=== PATIENT | female | born 1995 | race Caucasian/White ===

== ENCOUNTER 2019-01-17 20:51 | Emergency (ER) | payer MEDICAID ==
--- NOTE | 2019-01-17 21:51 | EDM.PDOC ---
ED HPI GENERAL MEDICAL PROBLEM - General Chief Complaint: Respiratory Problem Stated Complaint: COUGH WHICH MAKES HER VOMIT UNABLE TO KEEP FOOD DO Time Seen by Provider: 01/17/19 21:04 Source of Information: Reports: Patient History Limitations: Reports: No Limitations - History of Present Illness INITIAL COMMENTS - FREE TEXT/NARRATIVE: 23-year-old female presents for evaluation of cough and cold symptoms. She reports that her symptoms started 4 days ago with a stuffy nose. She states she now has a runny nose. 2 days ago she developed a cough. She is reporting that she has a light yellow productive sputum. She is also complaining of throat pain and right ear pain. She denies any fevers, chills or nausea. She states she has been experiencing posttussive emesis. States she's tried multiple over- the-counter medications including DayQuil and NyQuil. She is also taken some of her mother's Tessalon Perles which did not help. Reports her brothers are ill as well but she does not know with what. Throat Pain Score (Numeric/FACES): 5 Right Ear Pain Score (Numeric/FACES): 4 - Related Data Allergies Allergy/AdvReac Type Severity Reaction Status Date / Time amoxicillin [From Augmentin] Allergy Hives Verified 01/17/19 21:03 clavulanic acid Allergy Hives Verified 01/17/19 21:03 [From Augmentin] clindamycin Allergy Hives Verified 01/17/19 21:03 Home Meds: Home Meds Dextromethorphan/guaiFENesin [Robitussin DM] 10 ml PO Q4HR PRN #240 ml 01/17/19 [Rx] Past Medical History - Past Surgical History HEENT Surgical History: Reports: Adenoidectomy, Tonsillectomy Social & Family History - Tobacco Use Smoking Status *Q: Current Every Day Smoker Years of Tobacco use: 7 Packs/Tins Daily: 0.5 - Caffeine Use Caffeine Use: Reports: Coffee, Soda - Recreational Drug Use Recreational Drug Use: No ED ROS GENERAL - Review of Systems Review Of Systems: See Below Constitutional: Denies: Fever, Chills HEENT: Reports: Ear Pain (right), Throat Pain Respiratory: Reports: Cough, Sputum GI/Abdominal: Reports: Vomiting (post tussive). Denies: Nausea ED EXAM, GENERAL - Physical Exam Exam: See Below Exam Limited By: No Limitations General Appearance: Alert, WD/WN, No Apparent Distress Eye Exam: Bilateral Eye: Normal Inspection Ears: Normal External Exam, Normal Canal, Hearing Grossly Normal, Normal TMs Nose: Normal Inspection Throat/Mouth: Normal Inspection, Normal Lips, Normal Oropharynx, Normal Voice, No Airway Compromise, Other (tonsils are absent) Neck: Normal Inspection. No: Lymphadenopathy (L), Lymphadenopathy (R) Respiratory/Chest: No Respiratory Distress, Lungs Clear, Normal Breath Sounds Cardiovascular: Normal Peripheral Pulses, Regular Rate, Rhythm, No Murmur Neurological: Alert, Oriented, Normal Cognition Psychiatric: Normal Affect, Normal Mood Skin Exam: Warm, Dry, Normal Color Course - Vital Signs Last Recorded V/S: Last Vital Signs Temp 96.9 F 01/17/19 21:06 Pulse 68 01/17/19 21:06 Resp 20 01/17/19 21:06 BP 112/91 H 01/17/19 21:06 Pulse Ox 98 01/17/19 21:06 - Orders/Labs/Meds Orders: Active Orders 24 hr Category Date Time Status Chest 2V [CR] Stat Exams 01/17/19 21:22 Ordered - Radiology Interpretation Free Text/Narrative:: Two-view chest x-ray shows no acute intrathoracic process. - Re-Assessments/Exams Free Text/Narrative Re-Assessment/Exam: 01/17/19 21:45 Reviewed x-ray results the patient. Will discharge home. Viral upper respiratory infection. Recommendations given. Discharge instructions as documented. Departure - Departure Time of Disposition: 21:46 Disposition: Home, Self-Care 01 Condition: Good Clinical Impression: Viral upper respiratory infection - Discharge Information *PRESCRIPTION DRUG MONITORING PROGRAM REVIEWED*: Yes *COPY OF PRESCRIPTION DRUG MONITORING REPORT IN PATIENT [place]: No Prescriptions: Dextromethorphan/guaiFENesin [Robitussin DM] 10 ml PO Q4HR PRN #240 ml PRN Reason: Cough Instructions: Upper Respiratory Infection, Adult, [id number] Forms: ED Department Discharge Additional Instructions: Rest. Expect the cold to last 1-2 weeks. Post viral coughs can last several weeks longer. Drink plenty of fluids. Take the cough syrup 10mls PO every 4 hours prn cough. May try an OTC antihistamine such as Claritin or Allergy to help dry up secretions. Follow-up with PCP as needed. Please return to the ER should your symptoms change or worsen. - My Orders Last 24 Hours: My Active Orders 01/17/19 21:22 Chest 2V [CR] Stat - Assessment/Plan Last 24 Hours: My Active Orders 01/17/19 21:22 Chest 2V [CR] Stat
--- NOTE | 2019-01-20 10:17 | CR ---
Chest: Two views of the chest were obtained. Comparison: No prior chest x-ray. Heart size and mediastinum are normal. Lungs are clear. Bony structures are unremarkable. Pressure: 1. Nothing acute is appreciated on two-view chest x-ray. Diagnostic code #1
== END 2019-01-17 22:00 | disposition home or self-care (01) ==
LOC: JD.ED 20:51
DX: J06.9 Acute upper respiratory infection, unspecified (principal); F17.210 Nicotine dependence, cigarettes, uncomplicated; Z98.890 Other specified postprocedural states; Z88.1 Allergy status to other antibiotic agents
CPT/HCPCS: 71046; 71046-26; 99283

== ENCOUNTER 2019-06-01 21:03 | Emergency (ER) | payer MEDICAID ==
[2019-06-01] MEDS ORDERED: Ondansetron 4 MG Tab.DIS PO ONE (21:42)
--- NOTE | 2019-06-01 22:07 | EDM.PDOC ---
ED HPI GENERAL MEDICAL PROBLEM - General Chief Complaint: Gastrointestinal Problem Stated Complaint: VOMITING Time Seen by Provider: 06/01/19 21:42 Source of Information: Reports: Patient, RN Notes Reviewed History Limitations: Reports: No Limitations - History of Present Illness INITIAL COMMENTS - FREE TEXT/NARRATIVE: Patient is a 23-year-old female who presents to the ED for evaluation of vomiting. Patient states that she had 4 teeth pulled on Sunday, as these were rotten, and since then she's had a sore throat, cough, runny nose and sinus congestion since then. There is oral surgery was done with an oral surgeon at [facility], patient states that she had IV sedation and was not intubated for this procedure. The patient did have 2 teeth pulled on the upper right and left jaw and 2 teeth pulled on the right lower jaw. The patient states that she has had 4 episodes of vomiting today, she states anytime she tries to eat, about one hour later she vomits everything back up. She denies any fevers or chills. She states that she is getting adequate pain control from the hydrocodone, but states she is running low. Oral/Mouth Pain Score (Numeric/FACES): 5 - Related Data Allergies Allergy/AdvReac Type Severity Reaction Status Date / Time clavulanic acid Allergy Hives Verified 03/02/19 09:34 [From Augmentin] clindamycin Allergy Hives Verified 01/17/19 21:03 vancomycin Allergy Itching Verified 06/01/19 21:35 Home Meds: Home Meds . [No Known Home Meds] 06/01/19 [History] Past Medical History - Past Health History Medical/Surgical History: Denies Medical/Surgical History - Past Surgical History HEENT Surgical History: Reports: Adenoidectomy, Oral Surgery, Tonsillectomy Social & Family History - Family History Family Medical History: Noncontributory - Tobacco Use Smoking Status *Q: Never Smoker - Caffeine Use Caffeine Use: Reports: Coffee, Soda - Recreational Drug Use Recreational Drug Use: No ED ROS GENERAL - Review of Systems Review Of Systems: See Below Constitutional: Denies: Fever, Chills HEENT: Reports: No Symptoms Respiratory: Reports: No Symptoms Cardiovascular: Reports: No Symptoms Endocrine: Reports: No Symptoms GI/Abdominal: Reports: Nausea, Vomiting. Denies: Abdominal Pain : Reports: No Symptoms Musculoskeletal: Reports: No Symptoms Skin: Reports: No Symptoms Neurological: Reports: No Symptoms Psychiatric: Reports: No Symptoms Hematologic/Lymphatic: Reports: No Symptoms Immunologic: Reports: No Symptoms ED EXAM, GI/ABD - Physical Exam Exam: See Below Exam Limited By: No Limitations General Appearance: Alert, WD/WN, No Apparent Distress Eyes: Bilateral: Normal Appearance, EOMI Nose: Normal Inspection Throat/Mouth: Normal Inspection, Normal Lips, Other (dentition in poor repair. 4 sites of dental extraction, no obvious swelling or redness noted.) Head: Atraumatic, Normocephalic Neck: Normal Inspection, Supple, Non-Tender, Full Range of Motion Respiratory/Chest: No Respiratory Distress, Lungs Clear, Normal Breath Sounds, No Accessory Muscle Use, Chest Non-Tender Cardiovascular: Normal Peripheral Pulses, Regular Rate, Rhythm, No Murmur GI/Abdominal Exam: Normal Bowel Sounds, Soft, Non-Tender, No Distention, No Mass Extremities: Normal Inspection, Normal Capillary Refill Neurological: Alert, Oriented, Normal Cognition, No Motor/Sensory Deficits Psychiatric: Normal Affect, Normal Mood Skin Exam: Warm, Dry, Intact, Normal Color, No Rash Course - Vital Signs Last Recorded V/S: Last Vital Signs Temp 98.6 F 06/01/19 21:31 Pulse 67 06/01/19 21:31 Resp 18 06/01/19 21:31 BP 123/83 06/01/19 21:31 Pulse Ox 99 06/01/19 21:31 - Orders/Labs/Meds Orders: Active Orders 24 hr Category Date Time Status Communication Order [RC] ASDIRECTED Care 06/01/19 22:30 Ordered Meds: Medications Discontinued Medications Generic Name Dose Route Start Last Admin Trade Name Fareed PRN Reason Stop Dose Admin Ceftriaxone Sodium 1 gm 06/01/19 22:39 Rocephin IM 06/01/19 22:40 ONETIME ONE Ketorolac Tromethamine 60 mg 06/01/19 22:31 06/01/19 22:42 Toradol IM 06/01/19 22:32 60 mg ONETIME ONE Administration Lidocaine HCl 2 ml 06/01/19 22:40 Xylocaine-Mpf 1% INJECT 06/01/19 22:41 ONETIME ONE Ondansetron HCl 4 mg 06/01/19 21:42 06/01/19 21:52 Zofran Odt PO 06/01/19 21:43 4 mg ONETIME ONE Administration - Re-Assessments/Exams Free Text/Narrative Re-Assessment/Exam: 06/01/19 22:22 Patient presents to the ED for the evaluation of vomiting 4 today. Did order 4 mg ODT Zofran for initial management, will have her drink some fluids and eating crackers to see if these stay down. At this point in time she does not appear to have any sort of acute infective process, she could have a viral cold superimposed on everything, and she states she has been having an increased cough, and mildly sore throat with sinus congestion. I will have her follow up with her dental surgeon tomorrow regarding her concerning symptoms. 06/01/19 22:40 I did re-assess the patient and she was worried about the possibility of a bacterial infection d/t the recent dental work. I did order 1 gm Rocephin IM to be given with lidocaine, and will provide the patient with some cough medicine, as she states that this is what makes her nauseous, is the coughing. Departure - Departure Time of Disposition: 22:43 Disposition: Home, Self-Care 01 Condition: Fair Clinical Impression: Sore throat, Cough, Pain, dental Nausea and vomiting Qualifiers: Vomiting type: unspecified Vomiting Intractability: non-intractable Qualified Code(s): R11.2 - Nausea with vomiting, unspecified - Discharge Information *PRESCRIPTION DRUG MONITORING PROGRAM REVIEWED*: No *COPY OF PRESCRIPTION DRUG MONITORING REPORT IN PATIENT [place]: No Instructions: Cough, Adult, [id number], Nausea and Vomiting, Adult, Easy-to- Read, Sore Throat, [id number] Referrals: PCP,None [Primary Care Provider] - Forms: ED Department Discharge Additional Instructions: You were evaluated in the ED today for your cough, sore throat, and nausea and vomiting. You were given a one-time dose of Rocephin in the ED, this was given by injection, for recent dental work. You were given a prescription for some cough medicine, he'll need to obtain this out of the [employer] machine in the ER lobby, please take as directed. Recommend that you follow up with your dental surgeon tomorrow for possible follow-up appointment. Please return to the ED if your symptoms should change or worsen. - My Orders Last 24 Hours: My Active Orders 06/01/19 22:30 Communication Order [RC] ASDIRECTED - Assessment/Plan Last 24 Hours: My Active Orders 06/01/19 22:30 Communication Order [RC] ASDIRECTED
[2019-06-01] MEDS ORDERED: Ketorolac 60 MG/2 ML SDV IM ONE (22:31)
[2019-06-01] MEDS ORDERED: cefTRIAXone 1 GM Vial IM ONE (22:39)
[2019-06-01] MEDS ORDERED: Lidocaine 1% PF 2 ML SDV INJECT ONE (22:40)
== END 2019-06-01 23:15 | disposition home or self-care (01) ==
LOC: JD.ED 21:03
DX: R11.2 Nausea with vomiting, unspecified (principal); J02.9 Acute pharyngitis, unspecified; R05 Cough; K08.89 Other specified disorders of teeth and supporting structures; Z88.1 Allergy status to other antibiotic agents
CPT/HCPCS: 96372; 96374; 99283; A9270; J0696; J1885; J2001

== ENCOUNTER 2019-10-08 11:47 | Emergency (ER) | payer MEDICAID ==
--- NOTE | 2019-10-08 13:34 | EDM.PDOC ---
ED HPI GENERAL MEDICAL PROBLEM - General Chief Complaint: Respiratory Problem Stated Complaint: RUNNY NOSE/COUGHING Time Seen by Provider: 10/08/19 12:05 Source of Information: Reports: Patient History Limitations: Reports: No Limitations - History of Present Illness INITIAL COMMENTS - FREE TEXT/NARRATIVE: Patient is a 24-year-old female who presents with complaints of runny nose, congestion, and cough for the last day. She denies any fevers, chills, shortness of breath. States that her cough is nonproductive. Patient did not have an influenza vaccination this year. Her son is ill with similar symptoms. - Related Data Allergies Allergy/AdvReac Type Severity Reaction Status Date / Time amoxicillin Allergy Hives Verified 10/08/19 12:09 clavulanic acid Allergy Hives Verified 10/08/19 12:09 [From Augmentin] clindamycin Allergy Hives Verified 10/08/19 12:09 vancomycin Allergy Itching Verified 10/08/19 12:09 Home Meds: Home Meds . [No Known Home Meds] 10/08/19 [History] Past Medical History - Past Health History Medical/Surgical History: Denies Medical/Surgical History Cardiovascular History: Reports: None Respiratory History: Reports: None Gastrointestinal History: Reports: None Genitourinary History: Reports: None [employer]ER History: Reports: None Musculoskeletal History: Reports: None Neurological History: Reports: None Psychiatric History: Reports: None Endocrine/Metabolic History: Reports: None Hematologic History: Reports: None Immunologic History: Reports: None Oncologic (Cancer) History: Reports: None Dermatologic History: Reports: None - Infectious Disease History Infectious Disease History: Reports: None - Past Surgical History HEENT Surgical History: Reports: Adenoidectomy, Oral Surgery, Tonsillectomy Social & Family History - Family History Family Medical History: Noncontributory - Tobacco Use Smoking Status *Q: Current Every Day Smoker Years of Tobacco use: 7 Packs/Tins Daily: 0.5 - Caffeine Use Caffeine Use: Reports: Coffee, Soda - Recreational Drug Use Recreational Drug Use: No ED ROS GENERAL - Review of Systems Review Of Systems: Comprehensive ROS is negative, except as noted in HPI. ED EXAM, GENERAL - Physical Exam Exam: See Below Exam Limited By: No Limitations General Appearance: Alert, WD/WN, No Apparent Distress Ears: Normal External Exam, Normal Canal, Hearing Grossly Normal, Normal TMs Throat/Mouth: Normal Inspection, Normal Lips, Normal Teeth, Normal Gums, Normal Oropharynx, Normal Voice, No Airway Compromise Respiratory/Chest: No Respiratory Distress, Lungs Clear, Normal Breath Sounds, No Accessory Muscle Use, Chest Non-Tender Cardiovascular: Normal Peripheral Pulses, Regular Rate, Rhythm, No Edema, No Gallop, No JVD, No Murmur, No Rub GI/Abdominal: Normal Bowel Sounds, Soft, Non-Tender, No Organomegaly, No Distention, No Abnormal Bruit, No Mass Neurological: Alert, Oriented, CN II-XII Intact, Normal Cognition, Normal Gait, Normal Reflexes, No Motor/Sensory Deficits Psychiatric: Normal Affect, Normal Mood Skin Exam: Warm, Dry, Intact, Normal Color, No Rash Course - Vital Signs Last Recorded V/S: Last Vital Signs Temp 96.9 F 10/08/19 12:07 Pulse 93 10/08/19 12:07 Resp 16 10/08/19 12:07 BP 144/82 H 10/08/19 12:07 Pulse Ox 99 10/08/19 12:07 - Re-Assessments/Exams Free Text/Narrative Re-Assessment/Exam: Influenza screen was negative. Patient is likely suffering from a viral upper respiratory infection. Discharge instructions as documented. Departure - Departure Time of Disposition: 13:33 Disposition: Home, Self-Care 01 Condition: Good Clinical Impression: Viral upper respiratory infection - Discharge Information *PRESCRIPTION DRUG MONITORING PROGRAM REVIEWED*: No *COPY OF PRESCRIPTION DRUG MONITORING REPORT IN PATIENT JACK[place]: No Instructions: Viral Respiratory Infection, [id number] Referrals: PCP,None [Primary Care Provider] - Additional Instructions: You were seen in the emergency department today for runny nose, sinus congestion , and cough for the last day. Influenza screen was negative. It is likely that you are suffering from a viral upper respiratory infection. Treatment of this is symptomatic. You may use Tylenol or ibuprofen as needed over-the- counter for any fever or discomfort. [id number] Robitussin-DM can be used for your cough. Viral infections generally last 7 to 10 days. If you should experience any worsening symptoms, please do not hesitate to return to the emergency department. Sepsis Event Note - Evaluation Sepsis Screening Result: No Definite Risk - Focused Exam Vital Signs: Vital Signs Temp Pulse Resp BP Pulse Ox 10/08/19 12:07 96.9 F 93 16 144/82 H 99 Date Exam was Performed: 10/08/19 Time Exam was Performed: 13:30
== END 2019-10-08 13:55 | disposition home or self-care (01) ==
LOC: JD.ED 11:47
DX: J06.9 Acute upper respiratory infection, unspecified (principal); F17.210 Nicotine dependence, cigarettes, uncomplicated; Z88.0 Allergy status to penicillin; Z88.1 Allergy status to other antibiotic agents; Z88.8 Allergy status to other drugs, medicaments and biological substances
CPT/HCPCS: 87804; 99282; 99283